=== PATIENT | female | born 1960 ===

== ENCOUNTER 2016-09-02 06:53 | Day surgery (SDC) | payer OTHER ==
[2016-09-02] MEDS ORDERED: IV START KIT ONE (06:55)
[2016-09-02] MEDS ORDERED: LACTATED RINGERS 1,000 ML ONE (06:55)
[2016-09-02] MEDS ORDERED: ONDANSETRON 4 MG/2ML 2 ML VIAL IV ONE (07:32)
[2016-09-02] MEDS ORDERED: FENTANYL 250 MCG/5 ML AMP IV PRN ×2 (07:32→10:50)
[2016-09-02] MEDS ORDERED: MIDAZOLAM HCL 5 MG/5 ML VIAL IV PRN ×2 (07:32→10:50)
[2016-09-02] MEDS ORDERED: LACTATED RINGERS 1,000 ML IV SCH ×2 (07:45→11:00)
[2016-09-02] MEDS ORDERED: MIDAZOLAM HCL 5 MG/5 ML VIAL ONE (08:11)
[2016-09-02] MEDS ORDERED: FENTANYL 250 MCG/5 ML AMP ONE (08:11)
[2016-09-02] MEDS ORDERED: LIDOCAINE Viscous 2% 15 ML UDCUP ONE (08:26)
[2016-09-02] MEDS ORDERED: PROPOFOL 20 ML IV ONE (08:40)
[2016-09-02] MEDS ORDERED: LIDOCAINE Viscous 2% 15 ML UDCUP PO PRN ×2 (08:54→10:50)
== END 2016-09-02 09:26 | disposition home or self-care (01) ==
LOC: SDC 06:53
PROVIDERS: ATTEND Internal Medicine Gastroenterology
PROC: 0DJD8ZZ Inspection of Lower Intestinal Tract, Via Natural or Artificial Opening Endoscopic (ICD-10-PCS; principal; 2016-09-02)
DX: Z12.11 Encounter for screening for malignant neoplasm of colon (principal); Z86.010 Personal history of colon polyps; Z80.0 Family history of malignant neoplasm of digestive organs; R10.13 Epigastric pain; Z87.11 Personal history of peptic ulcer disease; F32.9 Major depressive disorder, single episode, unspecified; E55.9 Vitamin D deficiency, unspecified; Z88.5 Allergy status to narcotic agent
CPT/HCPCS: 45378; J3010; J2250; A9270; J2405; J7120